=== PATIENT | male | born 1980 | race Caucasian/White ===

== ENCOUNTER 2017-08-06 07:41 | Inpatient (IN) | payer OTHER ==
[~2017-08-06] VITALS: Ht 190.5 cm; Wt 104.3 kg
--- NOTE | 2017-08-06 14:00 | NUR ---
INTAKE ASSESSMENT Patient is 36yo male patient presented for admission for supervised withdrawal from alcohol. Vital signs: 153/93, HR 113, R 16, 02 sat 94% RA, pain 0/10. Alert and oriented X4 with NKA. Patient reports last use of alcohol was today 08/06/17 for 1 pint Vodka and cocaine 0.5gm. Patient reports tremors, tingling sensation, restlessness " Denies nausea, vomiting, stomach cramps, stuffy nose, sweating, goosebumps, headache, auditory/visual hallucinations at this time. Ramirez routines explained to patient (i.e q4h vital, medication handling including narcotics , disposal of any contraband. Patient appears to be stable to proceed with her admission to [facility] for further care. Patient has home meds.
[2017-08-06 14:06] VITALS: BP 153/93
[2017-08-06] MEDS ORDERED: diphenhydrAMINE 50 MG CAPSULE PO PRN (14:15)
[2017-08-06] MEDS ORDERED: CLONIDINE HCL 0.1 MG TABLET PO PRN (14:15)
[2017-08-06] MEDS ORDERED: ONDANSETRON 4 MG/2 ML VIAL IM PRN (14:15)
[2017-08-06] MEDS ORDERED: ACETAMINOPHEN 325 MG TABLET PO PRN (14:15)
[2017-08-06] MEDS ORDERED: LORAZEPAM 2 MG/1 ML VIAL IM PRN (14:15)
[2017-08-06] MEDS ORDERED: ONDANSETRON ODT 4 MG TAB.RAPDIS SL PRN (14:15)
[2017-08-06] MEDS ORDERED: NICOTINE 14 MG/24HR PATCH TD PRN (14:15)
[2017-08-06] MEDS ORDERED: MAG HYDROX/AL HYDROX/SIMETH 30 ML LIQUID UDC PO PRN (14:15)
[2017-08-06] MEDS ORDERED: LORAZEPAM 1 MG TABLET PO PRN ×2 (14:15)
[2017-08-06] MEDS ORDERED: MIRALAX 17 GM POWD.PACK PO PRN (14:15)
[2017-08-06] MEDS ORDERED: IBUPROFEN 400 MG TABLET PO PRN (14:15)
[2017-08-06] MEDS ORDERED: DICYCLOMINE HCL 20 MG TABLET PO PRN (14:15)
[2017-08-06] MEDS ORDERED: NICOTINE POLACRILEX 4 MG GUM-PK OF TEN BC PRN (14:15)
[2017-08-06] MEDS ORDERED: LOPERAMIDE HCL 2 MG CAPSULE PO PRN ×2 (14:15)
[2017-08-06] MEDS ORDERED: ALBU8.5H8 INH (14:29)
[2017-08-06 15:16] LABS: BASOPHILS # (AUTO) 0.1 K/uL (0.0-8.0); EOSINOPHILS # (AUTO) 0.1 K/uL (0.0-0.7); EOSINOPHILS % (AUTO) 1.1 % (0.0-7.0); HEMATOCRIT 48.9 % (40-50); HEMOGLOBIN 16.4 G/DL (14.0-18.0); MEAN CORPUSCULAR HEMOGLOBIN 29.5 UUG (27.0-31.0); MEAN CORPUSCULAR HGB CONC 34 g/dL (32.0-37.0); MONOCYTES # (AUTO) 0.7 K/UL (0.1-1.30); MONOCYTES % (AUTO) 9.1 % (0.0-11.0); NEUTROPHILS # (AUTO) 5.2 K/UL (1.8-8.9); NEUTROPHILS % (AUTO) 63.8 % (38.5-71.5); PLATELET COUNT (AUTO) 335 K/UL (150-450); RED BLOOD CELL COUNT(AUTO) 5.56 MIL/UL (4.7-6.1); WHITE BLOOD COUNT (AUTO) 8.1 K/UL (4.0-11.2)
[2017-08-06 15:22] LABS: *AMPHETAMINE, URINE NEGATIVE (NEGATIVE); *BARBITURATE, URINE NEGATIVE (NEGATIVE); *CANNABINOID, URINE POSITIVE (NEGATIVE); *COCCAINE, URINE POSITIVE (NEGATIVE); *OPIATE, URINE NEGATIVE (NEGATIVE); *PHENCYCLIDINE SCREEN,URINE NEGATIVE (NEGATIVE)
--- NOTE | 2017-08-06 15:22 | NUR ---
MD COMMUNICATION REGARDING CRITICAL VALUE Received call from lab regarding critical alcohol value 0.21. Md notified at 15:32pm.
[2017-08-06] MEDS ORDERED: THIAMINE HCL 200 MG/2 ML VIAL IM ONE (15:30)
[2017-08-06 15:42] LABS: BILIRUBIN,TOTAL 0.3 mg/dL (0.2-1.0); MAGNESIUM 2.1 mg/dL (1.8-2.4); POTASSIUM 3.6 mmol/L (3.5-5.1); TOTAL PROTEIN, SERUM 8.4 g/dL (6.4-8.2)
[2017-08-06 16:00] VITALS: BP 158/85
--- NOTE | 2017-08-06 16:50 | NUR ---
ADMISSION NOTE Patient is 36 yo male patient presented for admission for supervised withdrawal from alcohol. Patient reports tremors, tingling sensation, restlessness. Denies nausea, vomiting, stomach cramps, stuffy nose, sweating, goosebumps, headache, auditory/visual hallucinations at this time. On fall and seizure precautions, denies history of seizure. Denies SOB, chest pain. Patient has R ankle small dry abrasion. Gait is steady and ambulates independently. Patient was very anxious during admission and requested to speak to the discharge staff and wanted to leave AMA. Denies suicidal or homicidal ideation at this time. Initial CIWA was 8. Admission was not completed as patient discharged AMA.
--- NOTE | 2017-08-06 16:50 | NUR ---
AMA NOTE: Patient left AMA, refused to comply with treatment. Patient was educated about the risks and consequences of leaving AMA, pt. verbalized understanding but was adamant about leaving. Multiple staff members attempted to reason with patient without any success. Patient denies and suicidal or homicidal ideation. Patient's MD was notified and aware. Patient was given a list of community resources, AMA form was explained by the charge nurse and signed by patient. All belongings returned to patient. Patient took his home med back. Patient left at 16:50pm.
[2017-08-06] MEDS ORDERED: LORAZEPAM 1 MG TABLET PO ONE (21:00)
[2017-08-07 07:06] LABS: HEPATITIS B SURFACE AG Negative (Negative)
[2017-08-07] MEDS ORDERED: MULTIVITAMINS,THERAPEUTIC TABLET PO SCH (09:00)
[2017-08-07] MEDS ORDERED: TUBERCULIN,PURIF.PROT.DERIV. 5 TU/0.1 ML TEST ID ONE (09:00)
[2017-08-07] MEDS ORDERED: FOLIC ACID 1 MG TABLET PO SCH (09:00)
[2017-08-07] MEDS ORDERED: LORAZEPAM 1 MG TABLET PO SCH (09:00)
[2017-08-07] MEDS ORDERED: THIAMINE HCL 100 MG TABLET PO SCH (09:00)
[2017-08-08] MEDS ORDERED: LORAZEPAM 1 MG TABLET PO SCH (09:00)
[2017-08-09] MEDS ORDERED: LORAZEPAM 1 MG TABLET PO SCH (09:00)
[2017-08-10] MEDS ORDERED: LORAZEPAM 1 MG TABLET PO SCH (09:00)
[2017-08-11] MEDS ORDERED: LORAZEPAM 1 MG TABLET PO SCH (09:00)
== END 2017-08-06 16:50 | disposition left against medical advice (07) | DRG 894 ==
LOC: SRC 13:14
PROVIDERS: ADMIT Internal Medicine; ATTEND Internal Medicine
PROC: HZ2ZZZZ Detoxification Services for Substance Abuse Treatment (ICD-10-PCS; principal; 2017-08-06)
DX: F10.220 Alcohol dependence with intoxication, uncomplicated (principal); F14.229 Cocaine dependence with intoxication, unspecified; Y90.9 Presence of alcohol in blood, level not specified; F17.210 Nicotine dependence, cigarettes, uncomplicated; J45.20 Mild intermittent asthma, uncomplicated; Z81.1 Family history of alcohol abuse and dependence; Z82.49 Family history of ischemic heart disease and other diseases of the circulatory system; Z91.89 Other specified personal risk factors, not elsewhere classified
CPT/HCPCS: 36415; 80307; 80349; 80353; 83735; 85025; 86592; 86705; 86803; 87340; 87806; A4663; G0480; J3411

== ENCOUNTER 2017-08-31 08:33 | Inpatient (IN) | payer OTHER, BC ==
[~2017-08-31] VITALS: Ht 190.5 cm; Wt 108.9 kg
[~2017-08-31 08:33] MED LIST: ALBU8.5H8 INH
--- NOTE | 2017-09-01 10:50 | NUR ---
PRE-ADMISSION NOTE RECEIVED PT AT INTAKE DOWNSTAIRS. PT A/O X4, PT APPEARED INTOXICATED, BREATH SMELLED OF ALCOHOL. PT APPEARS TO BE AGITATED AND ANGRY. PT REPORTED HAVING ANXIETY AND FEELING RESTLESS. PT IS THE PRIMARY SOURCE OF INFORMATION; SPEECH IS GARBLED AND NON-CONSISTENT. PT IS AMBULATORY WITHOUT ASSISTANCE. PT STATES HE HAD AN ANAPHYLACTIC REACTION TO EATING A TYPE OF NUT BUT HE IS OKAY WITH PEANUTS. PMH OF ASTHMA WHICH THE PT BROUGHT HIS INHALER WITH HIM AND REQUESTED TO HAVE IT WHEN NEEDED. INITIAL VS WERE BP:124/81, PULSE: 105, RR: 18, O2 SAT: 95%, PT STATES 0 PAIN. EDUCATED PT WITH UNITS RULES.
[2017-09-01] MEDS ORDERED: ALBU8.5H8 IH (10:55)
--- NOTE | 2017-09-01 10:55 | NUR ---
ADMISSION NOTE PT IS ADMITTED ON THE UNIT ON 09/01/17 AT 1055 FOR ETOH AND COCAINE DEPENDENCE. A/O X4, NO SOB, RESPIRATIONS BILATERALLY EQUAL. PT APPEARED INTOXICATED, BREATH SMELLED OF ALCOHOL. PT APPEARS TO BE AGITATED AND ANGRY BUT COOPERATIVE. PT REPORTED HAVING ANXIETY AND FEELING RESTLESS. PT IS THE PRIMARY SOURCE OF INFORMATION; SPEECH IS GARBLED AND NON-CONSISTENT. PT IS AMBULATORY WITHOUT ASSISTANCE. PT STATES HE HAD AN ANAPHYLACTIC REACTION TO EATING A TYPE OF NUT BUT HE IS OKAY WITH PEANUTS. PT REQUESTS TO BE FULL CODE, REGULAR DIET. PMH OF ASTHMA WHICH THE PT BROUGHT HIS ALBUTEROL INHALER WITH HIM AND REQUESTED TO HAVE IT WHEN NEEDED. INITIAL VS WERE BP:124/81, PULSE: 105, RR: 18, O2 SAT: 95%, PT STATES 0 PAIN. PT HAS STATED HE HAS BEEN ADMITTED HERE BEFORE A MONTH AGO BUT LEFT AMA. PT STATES HIS PCP IS DR. WIGGINS AND DOES NOT HAVE A PSYCHIATRIST. PT DENIES ANY SI/HI IDEATIONS. PT REPORTED NO FAMILY HX OF ABUSE. PT STATES HE SMOKES ONLY WHEN HE DRINKS, AND LESS THAN A PACK A DAY. PT STATED LONGEST SOBRIETY WAS 6 YEARS THAT ENDED IN APRIL 2017. SUBSTANCE USE HISTORY: 1. ETOH VODKA, PO FIRST USE: 12 Y/O LAST USED: 09/01/17 DAILY USE: 3L DAILY FOR 10 DAYS 2. COCAINE, SNORTING FIRST USE : IN HS LAST USED: 09/01/17 DAILY USE: 3.5 GRAMS DAILY FOR 10 DAYS PT PT SKIN AND BODY CHECK HAS BEEN INSPECTED AND NO WOUNDS WERE NOTED, SKIN WARM, DRY AND INTACT. PT IS WEIGHED AT 240 LBS, PT STATES HT IS 6'3. PT HAS BEEN ESCORTED TO HIS ROOM AND ORIENTED TO THE UNIT. EDUCATED PT WITH THE UNITS RULES. PT IS NOW RESTING IN BED. SIDE RAILS UP X2, BED IN LOW POSITION. CALL LIGHT WITHIN REACH. SAFETY PRECAUTIONS TAKEN.
[2017-09-01] MEDS ORDERED: MIRALAX 17 GM POWD.PACK PO PRN (11:00)
[2017-09-01] MEDS ORDERED: diphenhydrAMINE 50 MG CAPSULE PO PRN ×2 (11:00→11:45)
[2017-09-01] MEDS ORDERED: ONDANSETRON ODT 4 MG TAB.RAPDIS SL PRN (11:00)
[2017-09-01] MEDS ORDERED: LORAZEPAM 2 MG/1 ML VIAL IM PRN (11:00)
[2017-09-01] MEDS ORDERED: CLONIDINE HCL 0.1 MG TABLET PO PRN (11:00)
[2017-09-01] MEDS ORDERED: ONDANSETRON 4 MG/2 ML VIAL IM PRN (11:00)
[2017-09-01] MEDS ORDERED: IBUPROFEN 400 MG TABLET PO PRN (11:00)
[2017-09-01] MEDS ORDERED: THIAMINE HCL 200 MG/2 ML VIAL IM ONE (11:00)
[2017-09-01] MEDS ORDERED: MAG HYDROX/AL HYDROX/SIMETH 30 ML LIQUID UDC PO PRN (11:00)
[2017-09-01] MEDS ORDERED: ALBUTEROL SULFATE 2.5 MG/ 0.5 ML NEBU NEB PRN (11:00)
[2017-09-01] MEDS ORDERED: ACETAMINOPHEN 325 MG TABLET PO PRN (11:00)
[2017-09-01] MEDS ORDERED: LORAZEPAM 1 MG TABLET PO PRN ×2 (11:00)
[2017-09-01] MEDS ORDERED: DICYCLOMINE HCL 20 MG TABLET PO PRN (11:00)
[2017-09-01] MEDS ORDERED: LOPERAMIDE HCL 2 MG CAPSULE PO PRN ×2 (11:00)
[2017-09-01] MEDS ORDERED: MAGNESIUM HYDROXIDE 30 ML LIQUID UDC PO PRN (11:00)
[2017-09-01 11:38] LABS: *AMPHETAMINE, URINE NEGATIVE (NEGATIVE); *BARBITURATE, URINE NEGATIVE (NEGATIVE); *CANNABINOID, URINE NEGATIVE (NEGATIVE); *COCCAINE, URINE POSITIVE (NEGATIVE); *OPIATE, URINE NEGATIVE (NEGATIVE); *PHENCYCLIDINE SCREEN,URINE NEGATIVE (NEGATIVE)
[2017-09-01] MEDS ORDERED: diphenhydrAMINE 50 MG CAPSULE PO ONE (11:45)
--- NOTE | 2017-09-01 11:45 | NUR ---
PT REFUSE Pt refused benadryl po 50mg x1 dose and prn ativan 1mg po prn per MD order for ciwa=12. pt states," that's nothing! That won't knock me out!".
[2017-09-01 12:00] VITALS: BP 126/81
[2017-09-01 12:09] LABS: BASOPHILS % (AUTO) 0.7 % (0.0-2.0); EOSINOPHILS # (AUTO) 0.3 K/uL (0.0-0.7); EOSINOPHILS % (AUTO) 4.3 % (0.0-7.0); HEMATOCRIT 43.6 % (36.7-47.1); LYMPHOCYTES # (AUTO) 1.9 K/uL (20.0-40.0); LYMPHOCYTES % (AUTO) 29.7 % (20.5-51.5); MEAN CORPUSCULAR HEMOGLOBIN 30.4 uug (23.8-33.4); MEAN CORPUSCULAR HGB CONC 34 g/dL (32.5-36.3); MEAN CORPUSCULAR VOLUME 88.5 fL (73.0-96.2); MONOCYTES # (AUTO) 0.6 K/uL (2.0-10.0); MONOCYTES % (AUTO) 9.4 % (0.0-11.0); NEUTROPHILS # (AUTO) 3.5 K/uL (1.8-8.9); NEUTROPHILS % (AUTO) 55.9 % (38.5-71.5); PLATELET COUNT (AUTO) 253 K/uL (152-348); RED BLOOD CELL COUNT(AUTO) 4.93 MIL/uL (4.06-5.63); WHITE BLOOD COUNT (AUTO) 6.3 K/uL (3.6-10.2)
[2017-09-01 12:22] LABS: BILIRUBIN,TOTAL 0.2 mg/dL (0.2-1.0); CREATININE 1.1 mg/dL (0.6-1.3); MAGNESIUM 2.1 mg/dL (1.8-2.4); POTASSIUM 3.6 mmol/L (3.5-5.1); TOTAL PROTEIN, SERUM 7.5 g/dL (6.4-8.2)
[2017-09-01] MEDS: GABAPENTIN 300 MG CAPSULE PO SCH (15:00)
[2017-09-01 16:00] VITALS: BP 107/63
--- NOTE | 2017-09-01 17:00 | NUR ---
TREATMENT Pt allowed for treatment to be completed. Addendum: 09/01/17 at 1804 by MADAY VAUGHN RN ERRORINCORRECT PT
[2017-09-01] MEDS: [UNRECOGNIZED DRUG - OTHER] IH PRN (17:36)
[2017-09-01] MEDS: HYDROXYZINE PAMOATE 25 MG CAPSULE PO PRN (17:41)
--- NOTE | 2017-09-01 17:41 | NUR ---
PRN Pt states feels anxious. Vistaril po prn per MD order given and tolerated well.
--- NOTE | 2017-09-01 17:42 | NUR ---
PRN Pt with ciwa=16. Ativan 2 mg po prn per MD order given and tolerated well.
--- NOTE | 2017-09-01 17:42 | NUR ---
PRN Pt states feels very anxious. Catapres po prn per MD order given and tolerated well.
--- NOTE | 2017-09-01 18:52 | NUR ---
END OF SHIFT PT IS A/O X4, RESPIRATIONS BILATERALLY EQUAL AND UNLABORED. PT REPORTS ANXIETY, RESTLESSNESS, CHILLS, SLIGHT NAUSEA. PT APPEARS AGITATED, WORRIED AFFECT, MODERATE TREMORS ARE SEEN. LAST CIWA IS 16 AT 1600. ATIVAN 2 MG PO PRN AT 1742 FOR S/S OF W/D. PT IS ON 5 DAY ATIVAN TAPER STARTING TOMORROW 09/02/17. SAFETY MEASURES TAKEN, SIDE RAILS UP X2, CALL LIGHT WITHIN REACH. 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
[2017-09-01 20:00] VITALS: BP 108/61
--- NOTE | 2017-09-01 20:00 | NUR ---
START OF SHIFT NOTE RECEIVED REPORT FROM DAY SHIFT NURSE. PATIENT IS A 36 YEAR OLD MALE NEWLY ADMITTED FOR ETOH/COCAINE DEPENDENCE. PATIENT WAS PLACED ON 5 DAY ATIVAN TAPER, UPON ADMISSION, PATIENT DRINKS 3 LITERS OF VODKA DAILY FOR 10 DAYS AND SNORTING 3.5 GRAMS OF COCAINE DAILY FOR 10 DAYS. PMH OF ASTHMA. NO SEIZURE HISTORY. SKIN INTACT. PATIENT WAS GIVEN PRN ATIVAN, VISTARIL , CLONIDINE AND ONE TIME BENADRYL. LAST CIWA 16. RECEIVED RESIDENT IN HIS ROOM, RESTING, UPON GREETING, PATIENT NOTED IRRITABLE, N/V, REPORTS ANXIOUS, SWEATING AND ABDOMINAL CRAMPING . PATIENT STATES HE WANTS TO GO BACK TO SLEEP. ON FALL/SEIZURE PRECAUTION. SAFETY MEASURES IN PLACE. CALL LIGHT IN REACH. WILL CONTINUE TO MONITOR Addendum: 09/02/17 at 0132 by LINDSAY LITTLE LVN PATIENT REFUSED TO HAVE BOTH SIDE RAILS UP , EXPLAINED RISKS/BENEFITS, STILL REFUSED
[2017-09-01] MEDS ORDERED: GABAPENTIN 300 MG CAPSULE PO SCH (21:00)
[2017-09-01 22:25] VITALS: BP 120/69
[2017-09-02] VITALS: BP 106/63
--- NOTE | 2017-09-02 | NUR ---
CIWA DEFERRED PATIENT SLEEPING. CIWA DEFERRED. RESPIRATION EVEN AND UNLABORED. SAFETY MEASURES IN PLACE. CALL LIGHT IN REACH. WILL CONTINUE TO MONITOR . WILL CONTINUE TO MONITOR.
[2017-09-02 04:00] VITALS: BP 100/69
--- NOTE | 2017-09-02 07:05 | NUR ---
END OF SHIFT NOTE PATIENT IS A 36 YEAR OLD MALE NEWLY ADMITTED FOR ETOH/COCAINE DEPENDENCE. PATIENT WAS PLACED ON 5 DAY ATIVAN TAPER, TOLERATED WELL, NO ADVERSE REACTION. PMH OF ASTHMA, NO SOB DURING SHIFT. NO SEIZURE HISTORY. SKIN INTACT. RECEIVED PATIENT WAS IN THE ROOM MOST OF THE SHIFT. PATIENT DID NOT REQUIRE ANY PRN MEDICATION. ON FALL/SEIZURE PRECAUTION. SAFETY MEASURES IN PLACE. CALL LIGHT IN REACH. WILL CONTINUE TO MONITOR. SLEPT 9 HOURS. FLUID INTAKE 605 ML . VOIDED X 1. NO BM. LAST CIWA 5.
[2017-09-02 07:07] LABS: HEPATITIS B SURFACE AG Negative (Negative)
[2017-09-02] MEDS: [UNRECOGNIZED DRUG - OTHER] IH PRN ×3 (07:31→16:33)
--- NOTE | 2017-09-02 07:36 | NUR ---
Pt wheezing. Albuterol inhaler administered prn
--- NOTE | 2017-09-02 07:37 | NUR ---
START OF SHIFT NOTE : RECEIVED REPORT FROM DAY SHIFT NURSE. PATIENT IS A 36 YEAR OLD MALE NEWLY ADMITTED FOR ETOH/COCAINE DEPENDENCE. PATIENT WAS PLACED ON 5 DAY ATIVAN TAPER. TO START THIS AM. PT IS ALERT AND ORIENTED X 4. COLOR GOOD, SKIN WARM AND DRY. RESPIRATIONS EVEN AND UNLABORED. C/O WHEEZING. RESTING IN BED. SAFETY PRECAUTIONS OBSERVED. CALL LIGHT WITHIN REACH.
[2017-09-02 08:00] VITALS: BP 120/69
--- NOTE | 2017-09-02 08:45 | NUR ---
Pt feels improved after Albuterol inhaler prn. VSS CIWA 5 c/o tremors, seating an anxierty
[2017-09-02] MEDS ORDERED: DOCUSATE SODIUM 250 MG CAPSULE PO SCH (09:00)
[2017-09-02] MEDS ORDERED: LORAZEPAM 1 MG TABLET PO SCH (09:00)
[2017-09-02] MEDS ORDERED: TUBERCULIN,PURIF.PROT.DERIV. 5 TU/0.1 ML TEST ID ONE (09:00)
[2017-09-02] MEDS ORDERED: 5 DAY TAPER OF LORAZEPAM -SERENITY PROTOCOL PO PRN (09:00)
[2017-09-02] MEDS: GABAPENTIN 300 MG CAPSULE PO SCH ×3 (09:10→21:02)
[2017-09-02] MEDS: THIAMINE HCL 100 MG TABLET PO SCH (09:10)
[2017-09-02] MEDS: LORAZEPAM 1 MG TABLET PO SCH ×4 (09:10→21:02)
[2017-09-02] MEDS: FOLIC ACID 1 MG TABLET PO SCH (09:10)
[2017-09-02] MEDS: MULTIVITAMINS,THERAPEUTIC TABLET PO SCH (09:10)
[2017-09-02 12:28] VITALS: BP 100/58
--- NOTE | 2017-09-02 13:00 | NUR ---
Albuterol inhaler 2 puffs for wheezing prn
--- NOTE | 2017-09-02 13:58 | NUR ---
Pt states wheezing improved after Albuterol inhaler prn
[2017-09-02 17:40] VITALS: BP 100/58
--- NOTE | 2017-09-02 18:36 | NUR ---
END OF SHIFT NOTE: Report given to operation shift supervisor nurse. Pt is a 36 yo male admitted 09-01-17 for ETOH and Cocaine dependence. Pt is on a 5 day Ativan taper. Tolerating well. Pt is alert and oriented X4. Color good, skin warm and dry. Respirations even and unlabored. Vital signs have remained stable throughout shift. Last CIWA 6 @ 1700. Received Albuterol inhaler X3. Safety precautions observed. Call light within reach.
[2017-09-02 20:00] VITALS: BP 141/95
--- NOTE | 2017-09-02 20:00 | NUR ---
START OF SHIFT NOTE RECEIVED REPORT FROM DAY SHIFT NURSE. PATIENT IS A 36 YEAR OLD MALE ADMITTED FOR ETOH DEPENDENCE. PATIENT IS ON 5 DAY ATIVAN TAPER. PATIENT ALLERGIC TO NUTS-UNSPECIFIED. PMH OF ASTHMA. SKIN INTACT. PATIENT WAS GIVEN PRN ALBUTEROL INHALER . LAST CIWA 6. RECEIVED PATIENT ALERT AND ORIENTED X 4. RESPIRATION EVEN AND UNLABORED, UPON GREETING , PATIENT STATES HES BETTER BUT TIRED, NOTED IRRITABLE , REPORTS ANXIETY AND SWEATING, HE ATTENDED 1 GROUP. APPETITE IS GOOD. ENCOURAGE FLUIDS. FALL /SEIZURE PRECAUTION. SAFETY MEASURES IN PLACE. CALL LIGHT IN REACH. WILL CONTINUE TO MONITOR
--- NOTE | 2017-09-03 | NUR ---
CIWA DEFERRED PATIENT SLEEPING . COWS DEFERRED. PATIENT REFUSED VS, WANTS TO SLEEP. RESPIRATION EVEN AND UNLABORED. SAFETY MEASURES IN PLACE. CALL LIGHT IN REACH. WILL CONTINUE TO MONITOR.
--- NOTE | 2017-09-03 04:00 | NUR ---
CIWA DEFERRED PATIENT SLEEPING . CIWA DEFERRED. PATIENT REFUSED VS, WANTS TO SLEEP. RESPIRATION EVEN AND UNLABORED. SAFETY MEASURES IN PLACE. CALL LIGHT IN REACH. WILL CONTINUE TO MONITOR.
--- NOTE | 2017-09-03 07:29 | NUR ---
END OF SHIFT NOTE PATIENT IS A 36 YEAR OLD MALE ADMITTED FOR ETOH DEPENDENCE. PATIENT IS ON 5 DAY ATIVAN TAPER, TOLERATED WELL AND NO ADVERSE REACTION. PATIENT COOPERATIVE, COMPLIANT WITH MEDICATION AND TREATMENT PLAN. IN HIS ROOM MOST OF THE SHIFT. ENCOURAGE FLUIDS. ON FALL /SEIZURE PRECAUTION. SAFETY MEASURES IN PLACE. CALL LIGHT IN REACH. WILL CONTINUE TO MONITOR. SLEPT 9 HOURS. FLUID INTAKE 1,355 ML. VOIDED X 1 . NO BM. LAST CIWA 6.
--- NOTE | 2017-09-03 07:45 | NUR ---
START OF SHIFT Rcvd endorsement from ongoing nurse, client is in room, he is a/o x4. Client presents with anxious mood, flat affect, flushed face, fine tremors, and clammy skin. He reports chills, stomach cramps, restless legs, and fatigue. Encourage client to attend to group therapy for skills to maintain sober. Encourage client to increase PO fluid intake as tolerated to facilitate detox. Client is a 36 y/o male, admitted to [facility] for withdrawal from alcohol. Client is on 5 day Ativan taper, tolerating well (day 2). Last CIWA 6 @ 1999. Client had an uneventful night, he slept 9 hrs. He denies a hx of withdrawal-induced seizures, Client reports Allergy to nuts, full code, regular diet. Side rails x 2 up/padded, seizure precautions. Call light within reach.
[2017-09-03 08:48] VITALS: BP 120/73
[2017-09-03] MEDS ORDERED: LORAZEPAM 1 MG TABLET PO SCH (09:00)
[2017-09-03] MEDS: LORAZEPAM 1 MG TABLET PO SCH ×3 (09:05→21:38)
[2017-09-03] MEDS: MULTIVITAMINS,THERAPEUTIC TABLET PO SCH (09:05)
[2017-09-03] MEDS: THIAMINE HCL 100 MG TABLET PO SCH (09:05)
[2017-09-03] MEDS: GABAPENTIN 300 MG CAPSULE PO SCH ×3 (09:05→21:38)
[2017-09-03] MEDS: FOLIC ACID 1 MG TABLET PO SCH (09:06)
[2017-09-03] MEDS: [UNRECOGNIZED DRUG - OTHER] IH PRN (09:22)
--- NOTE | 2017-09-03 09:22 | NUR ---
JANELLE Lucero HFA 1 puff IH administered for SOB. Client has history of asthma. Call light within reach.
--- NOTE | 2017-09-03 09:52 | NUR ---
JANELLE Lucero HFA 1 puff IH administered for SOB. Client has history of asthma. Call light within reach Addendum: 09/03/17 at 1551 by GURINDER SINGH RN Reassessment client reports feeling better
[2017-09-03 11:40] LABS: BILIRUBIN,DIRECT 0.1 mg/dL (0.0-0.2); BILIRUBIN,TOTAL 0.2 mg/dL (0.2-1.0); TOTAL PROTEIN, SERUM 6.9 g/dL (6.4-8.2)
--- NOTE | 2017-09-03 11:46 | NUR ---
MD Notification AST 41H ALT 89H NNO at this time
[2017-09-03 12:00] VITALS: BP 143/89
[2017-09-03 16:57] VITALS: BP 127/70
--- NOTE | 2017-09-03 19:26 | NUR ---
END OF SHIFT Client is a 36 y/o male, a/ox 4, admitted to [facility] for withdrawal from alcohol. Client is on 5 day Ativan taper, tolerating well (day 2). Last CIWA 7 @ 1600. Client is not compliant with group therapy d/t withdrawal symptoms. Consumes 75-100% of meals, tolerated well. Adequate fluid PO intake 2292mL, void x 7, stool x2. He denies a hx of withdrawal-induced seizures, Client reports Allergy to nuts, full code, regular diet. Side rails x 2 up/padded, seizure precautions. Call light within reach.
--- NOTE | 2017-09-03 19:30 | NUR ---
Start of Shift Note: Patient is a 36 y/o male admitted on 09/01/17 for ETOH dependence. Patient reported drinking 3 liters of vodka daily for 10 days and smokes 3.5 grams daily for 10 days. Patient has PMHx of Asthma. No seizure history noted. Patient is on a regular diet with allergies to Nuts. Full Code status. Patient is on a 5-day Ativan taper and tolerating well. Last CIWA is 7. Pt received PRN Ventolin and was effective. Patient is alert & oriented x4. Pt is ambulatory with a steady gait. No shortness of breath noted. Respiration even & unlabored. Abdomen soft & non-distended. No nausea/vomiting noted. Patient presented with mild headache, mild agitation and anxiety. Hand tremors felt but not seen. Pt denies any hallucinations. Safety measures in place. Bed locked in lowest position. Both side rails up. Call light within pt's reach. Will continue to monitor patient.
[2017-09-03 20:00] VITALS: BP 135/87
[2017-09-03] MEDS: HYDROXYZINE PAMOATE 25 MG CAPSULE PO PRN (21:38)
--- NOTE | 2017-09-03 21:38 | NUR ---
PRN Vistaril Patient complains of anxiety. PRN Vistaril administered as ordered. Will monitor for effectiveness of medication.
--- NOTE | 2017-09-03 22:38 | NUR ---
PRN Reassessment Pt asleep in bed and appear comfortable. No s/s of distress noted. Will continue to monitor patient.
[2017-09-04] VITALS: BP 135/88
[2017-09-04] MEDS: [UNRECOGNIZED DRUG - OTHER] IH PRN ×3 (00:57→12:41)
--- NOTE | 2017-09-04 00:57 | NUR ---
PRN Venolin PRN Ventolin HFA 1 puff administered as ordered for SOB with effectiveness. Pt reports that he felt much better after medication was given. Will continue to monitor patient.
--- NOTE | 2017-09-04 07:02 | NUR ---
End of Shift Note: Pt had an uneventful night. Pt continues on his Ativan and tolerating well. Last CIWA 6. Medications effective in decreasing withdrawal symptoms. Pt received PRN Vistaril for anxiety and Ventolin for SOB. Pt remains stable and vitals remains WNL. Pt is compliant with medications. Will continue to educate pt to increase fluid intake. Pt still asleep at this time. No s/s of distress noted. Pt slept for a total of 9 hours. Fluid intake: 1242ml. Voided 2x with 2x bowel movement. All needs attended met. Safety precautions are in place. Will endorse pt to day shift nurse.
--- NOTE | 2017-09-04 07:30 | NUR ---
START OF SHIFT Rcvd endorsement from ongoing nurse, client is in room, he is a/o x4. Client presents with depressed mood, flat affect, flushed face, and clammy skin. He reports SOB, sweats, stomach cramps, restless legs, and fatigue. Encourage client to attend group therapy for skills to maintain sober. Encourage client to increase PO fluid intake as tolerated to facilitate detox. Client is a 36 y/o male, admitted to [facility] for withdrawal from alcohol. Client is on 5 day Ativan taper, tolerating well (day 3). Last CIWA 6 @ 1999. PRN Ventolin HFA 1 puff IH for SOB, Vistaril 25mg PO for anxiety, noted effective. Client slept 9 hrs. He denies a hx of withdrawal-induced seizures, Client reports Allergy to nuts, full code, regular diet. Side rails x 2 up/padded, seizure precautions. Call light within reach.
--- NOTE | 2017-09-04 07:37 | NUR ---
PRN Ventolin HFA 1 puff IH administered for SOB, spO2 @ 97% on RA. Call light within reach
[2017-09-04 08:03] VITALS: BP 141/79
--- NOTE | 2017-09-04 08:07 | NUR ---
Reassessment PRN Nic HFA 1 puff IH, client reports feeling better. Call light within reach.
[2017-09-04] MEDS ORDERED: LORAZEPAM 1 MG TABLET PO SCH (09:00)
[2017-09-04] MEDS: LORAZEPAM 1 MG TABLET PO SCH ×2 (09:18→12:42)
[2017-09-04] MEDS: FOLIC ACID 1 MG TABLET PO SCH (09:18)
[2017-09-04] MEDS: THIAMINE HCL 100 MG TABLET PO SCH (09:18)
[2017-09-04] MEDS: MULTIVITAMINS,THERAPEUTIC TABLET PO SCH (09:18)
[2017-09-04] MEDS: GABAPENTIN 300 MG CAPSULE PO SCH ×2 (09:18→14:58)
[2017-09-04 12:00] VITALS: BP 136/78
--- NOTE | 2017-09-04 15:05 | NUR ---
AMA: Client stated the he is not ready and wants to leave. Client was educated about the risks and consequences of leaving AMA, client verbalized understanding but still requested to leave. Multiple staff members spoke with client without any success. VS are WNL, client denies any suicidal/homicidal ideations, skin intact , Dr. rivers notified. Pt was given a list of community resources in case he is in need of help. all belongings and medication returned to client. Client left the unit at 1500...
[2017-09-05] MEDS ORDERED: LORAZEPAM 1 MG TABLET PO SCH ×2 (09:00)
[2017-09-06] MEDS ORDERED: LORAZEPAM 1 MG TABLET PO SCH ×2 (09:00)
== END 2017-09-04 15:05 | disposition left against medical advice (07) | DRG 894 ==
LOC: SRC 09-01 09:42
PROVIDERS: ADMIT Internal Medicine; ATTEND Internal Medicine
PROC: HZ2ZZZZ Detoxification Services for Substance Abuse Treatment (ICD-10-PCS; principal; 2017-09-01)
PROC: HZ31ZZZ Individual Counseling for Substance Abuse Treatment, Behavioral (ICD-10-PCS; 2017-09-04)
DX: F10.230 Alcohol dependence with withdrawal, uncomplicated (principal); K70.10 Alcoholic hepatitis without ascites; F14.220 Cocaine dependence with intoxication, uncomplicated; Y90.7 Blood alcohol level of 200-239 mg/100 ml; F17.210 Nicotine dependence, cigarettes, uncomplicated; Z91.89 Other specified personal risk factors, not elsewhere classified; J45.20 Mild intermittent asthma, uncomplicated
CPT/HCPCS: 36415; 80307; 80353; 83690; 83735; 85025; 86592; 86705; 86803; 87340; 87806; G0480; J3535

== ENCOUNTER 2018-07-17 09:49 | Inpatient (IN) | payer OTHER, BC ==
[~2018-07-17] VITALS: Ht 190.5 cm; Wt 108.9 kg
[2018-07-17] MEDS ORDERED: ALBU8.5H8 INH (17:50)
[2018-07-17] MEDS ORDERED: MAG HYDROX/AL HYDROX/SIMETH 30 ML LIQUID UDC PO PRN (18:45)
[2018-07-17] MEDS ORDERED: ONDANSETRON 4 MG/2 ML VIAL IM PRN (18:45)
[2018-07-17] MEDS ORDERED: IBUPROFEN 600 MG TABLET PO PRN (18:45)
[2018-07-17] MEDS ORDERED: MIRALAX 17 GM POWD.PACK PO PRN (18:45)
[2018-07-17] MEDS ORDERED: LOPERAMIDE HCL 2 MG CAPSULE PO PRN ×2 (18:45)
[2018-07-17] MEDS ORDERED: MAGNESIUM HYDROXIDE 30 ML LIQUID UDC PO PRN (18:45)
[2018-07-17] MEDS ORDERED: HYDROXYZINE PAMOATE 25 MG CAPSULE PO PRN (18:45)
[2018-07-17] MEDS ORDERED: LORAZEPAM 1 MG TABLET PO PRN ×2 (18:45)
[2018-07-17] MEDS ORDERED: LORAZEPAM 2 MG/1 ML VIAL IM PRN (18:45)
[2018-07-17] MEDS ORDERED: THIAMINE HCL 200 MG/2 ML VIAL IM ONE (18:45)
[2018-07-17] MEDS ORDERED: ONDANSETRON ODT 4 MG TAB.RAPDIS SL PRN (18:45)
[2018-07-17] MEDS ORDERED: CLONIDINE HCL 0.1 MG TABLET PO PRN (18:45)
[2018-07-17] MEDS ORDERED: ACETAMINOPHEN 325 MG TABLET PO PRN (18:45)
[2018-07-17] MEDS ORDERED: diphenhydrAMINE 50 MG CAPSULE PO PRN (18:45)
[2018-07-17 20:00] VITALS: BP 139/104
[2018-07-17 21:13] LABS: *AMPHETAMINE, URINE NEGATIVE (NEGATIVE); *BARBITURATE, URINE NEGATIVE (NEGATIVE); *CANNABINOID, URINE POSITIVE (NEGATIVE); *COCCAINE, URINE POSITIVE (NEGATIVE); *OPIATE, URINE NEGATIVE (NEGATIVE); *PHENCYCLIDINE SCREEN,URINE NEGATIVE (NEGATIVE)
[2018-07-17 21:36] LABS: BASOPHILS # (AUTO) 0.1 K/uL (0.0-8.0); BASOPHILS % (AUTO) 0.6 % (0.0-2.0); EOSINOPHILS # (AUTO) 0.3 K/uL (0.0-0.7); EOSINOPHILS % (AUTO) 2.6 % (0.0-7.0); HEMATOCRIT 45.8 % (36.7-47.1); HEMOGLOBIN 15.9 g/dL (12.5-16.3); LYMPHOCYTES # (AUTO) 2.3 K/uL (20.0-40.0); LYMPHOCYTES % (AUTO) 22.2 % (20.5-51.5); MEAN CORPUSCULAR HEMOGLOBIN 30.8 uug (23.8-33.4); MEAN CORPUSCULAR HGB CONC 35 g/dL (32.5-36.3); MEAN CORPUSCULAR VOLUME 88.8 fL (73.0-96.2); MONOCYTES % (AUTO) 9.9 % (0.0-11.0); NEUTROPHILS # (AUTO) 6.7 K/uL (1.8-8.9); NEUTROPHILS % (AUTO) 64.7 % (38.5-71.5); PLATELET COUNT (AUTO) 307 K/uL (152-348); RED BLOOD CELL COUNT(AUTO) 5.15 MIL/uL (4.06-5.63); WHITE BLOOD COUNT (AUTO) 10.4 K/uL (3.6-10.2)
[2018-07-17 21:51] LABS: BILIRUBIN,TOTAL 0.3 mg/dL (0.2-1.0); CREATININE 0.9 mg/dL (0.6-1.3); MAGNESIUM 2.1 mg/dL (1.8-2.4); POTASSIUM 3.7 mmol/L (3.5-5.1); TOTAL PROTEIN, SERUM 8.2 g/dL (6.4-8.2)
[2018-07-18] MEDS ORDERED: FOLIC ACID 1 MG TABLET PO SCH (09:00)
[2018-07-18] MEDS ORDERED: TUBERCULIN,PURIF.PROT.DERIV. 5 TU/0.1 ML TEST ID ONE (09:00)
[2018-07-18] MEDS ORDERED: THIAMINE HCL 100 MG TABLET PO SCH (09:00)
[2018-07-18] MEDS ORDERED: MULTIVITAMINS,THERAPEUTIC TABLET PO SCH (09:00)
[2018-07-20 14:07] LABS: HEPATITIS B SURFACE AG Negative (Negative)
== END 2018-07-17 23:14 | disposition left against medical advice (07) | DRG 894 ==
LOC: SRC 17:00
PROVIDERS: ADMIT Internal Medicine; ATTEND Internal Medicine
PROC: HZ2ZZZZ Detoxification Services for Substance Abuse Treatment (ICD-10-PCS; principal; 2018-07-17)
DX: F10.239 Alcohol dependence with withdrawal, unspecified (principal); Y90.9 Presence of alcohol in blood, level not specified
CPT/HCPCS: 36415; 80307; 80349; 80353; 83690; 83735; 85025; 86592; 86705; 86803; 87340; 87806; G0480